=== PATIENT | female | born 1995 | race Asian ===

== ENCOUNTER 2016-12-16 19:19 | Emergency (ER) | payer OTHER ==
[2016-12-16] MEDS ORDERED: SODIUM CHLORIDE 0.9% 3 ML VIAL.NEB INHALATION ONE (19:43)
[2016-12-16] MEDS ORDERED: IPRATROPIUM/ALBUTEROL 0.5/3 MG 3 ML AMPUL.NEB INHALATION ONE (19:43)
[2016-12-16] MEDS ORDERED: PIGGYBACK IV ONE (20:01)
[2016-12-16] MEDS ORDERED: METHYLPREDNISOLONE SOD 125 MG/2 ML VIAL ONE (20:01)
[2016-12-16] MEDS ORDERED: MAGNESIUM SULFATE IV ONE (20:01)
[2016-12-16 20:14] LABS: BASOPHIL# 0.1 X 10^3uL (0.0-0.1); BASOPHILS 1.3 % (0.0-2.0); EOSINOPHILS 0.8 % (0.0-6.0); HEMATOCRIT 44.8 % (36.0-48.0); HEMOGLOBIN 15.2 g/dL (12.0-16.0); LYMPHOCYTES 32.4 % (20.0-40.0); LYMPHOCYTES# 1.5 X 10^3uL (0.8-3.8); MEAN CELL VOLUME 90.9 fL (80.0-100.0); MEAN CORPUSCULAR HEMOGLOBIN 30.9 pg (29.0-35.0); MEAN PLATELET VOLUME 8.4 fL (7.4-10.4); MONOCYTES 6.8 % (2.0-10.0); MONOCYTES# 0.3 X 10^3uL (0.2-1.0); NEUTROPHILS 58.7 % (54.0-75.0); NEUTROPHILS# 2.6 X 10^3uL (2.6-6.7); PLATELET COUNT 286 X 10^3uL (130-440); RED BLOOD COUNT 4.93 X 10^6uL (4.20-6.10); RED CELL DISTRIBUTION WIDTH 12.4 % (11.5-14.5); WHITE BLOOD COUNT 4.5 X 10^3uL (3.9-10.7)
[2016-12-16 20:24] LABS: A/G RATIO 1.5; ALBUMIN 4.9 g/dL (3.5-5.0); ALKALINE PHOSPHATASE 71 U/L (38-126); ALT 37 U/L (9-52); AST 26 U/L (14-36); BILIRUBIN, TOTAL 0.7 mg/dL (0.2-1.3); BLOOD UREA NITROGEN 9 mg/dL (7-17); CALCIUM 9.9 mg/dL (8.4-10.2); CHLORIDE 104 mmol/L (98-107); EST GLOMERULAR FILTRATION RATE > 60 mL/min; GLUCOSE 94 mg/dL (70-100); POTASSIUM 3.7 mmol/L (3.5-5.1); SODIUM 142 mmol/L (137-145); TOTAL PROTEIN 8.1 g/dL (6.3-8.2)
--- NOTE | 2016-12-16 20:51 | ER PHYSICIAN DOCUMENTATION ---
Physician Documentation [facility] Name:Laurie Major Age:20 yrs Sex:Female :1995 Arrival Date:12/16/2016 Time:19:19 Bed4 Private MD: William Rehman Disposition: 12/16 20:30 Critical Care: not applicable. be Disposition: 12/16/16 20:32 Discharged to Home/Self Care. Impression: Asthma with Acute Exacerbation. - Condition is Good. - Discharge Instructions: ASTHMA, Acute (Adult). - Prescriptions for Prednisone 20 mg Oral Tablet - take 2 tablet by ORAL route once daily for 5 days; 10 tablet. - Medical Reconciliation form form. - Follow up: Private Physician; When: As needed; Reason: Continuance of care. - Problem is an acute exacerbation. - Symptoms have improved. HPI: 20:00 This 20 yrs old Female presents to ER via Private Vehicle with be complaints of Respiratory Distress. 20:00 The patient has shortness of breath with light activity. Onset: The symptom(s)/episode be began/occurred gradually, today. Duration: The symptoms are continuous. The patient's shortness of breath is alleviated by inhaler. Associated signs and symptoms: Pertinent positives: non-productive cough. The patient has experienced similar episodes in the past, chronically, astma. Historical: - Allergies: No known drug Allergies; - Home Meds: 1. Singulair Oral 2. Albuterol Inhl - PMHx: ASTHMA; - PSHx: None; - Tetanus: unknown will f/u with PCP. - Ebola Screening: : Patient negative for fever greater than or equal to 101.5 degrees Fahrenheit, and additional compatible Ebola Virus Disease symptoms. Patient denies exposure to infectious person. Patient denies travel to an Ebola-affected area in the 21 days before illness onset. . - Immunization history: Unable to Obtain Flu Vaccine unknown. - Social history: Smoking status: Patient states was never smoker of tobacco. ROS: 20:01 Respiratory: Positive for cough, wheezing, Negative for sputum production. be 20:01 All other systems are negative. Exam: 20:01 Constitutional: This is a well developed, well nourished patient who is awake, alert, be and in no acute distress. 20:01 ENT: Nares patent. No nasal discharge, no septal abnormalities noted. Tympanic be membranes are normal and external auditory canals are clear. Oropharynx with no redness, swelling, or masses, exudates, or evidence of obstruction, uvula midline. Mucous membranes moist. 20:01 Cardiovascular: Rhythm: regular, Heart sounds: normal. 20:01 Respiratory: Respirations: normal, Breath sounds: wheezing, that is mild, decreased breath sounds, are scattered. Vital Signs: 19:22 BP 126 / 94 RA Sitting (auto/reg); Pulse 116 LA; Resp 12 S; Temp 98.7(O); Pulse Ox 93% em3 on R/A; Weight 58.97 kg (R); Height 5 ft. 5 in. (165.10 cm) (R); Pain 0/10; 20:41 BP 113 / 76; Pulse 93; Resp 14; Pulse Ox 95% on R/A; Pain 0/10; tg 19:22 Body Mass Index 21.63 (58.97 kg, 165.10 cm) em3 MDM: 19:29 Patient medically screened. be 20:02 Differential diagnosis: asthma, Bronchitis pneumonia, Pneumothorax. Antibiotic be administration: Not indicated. Data reviewed: vital signs, lab test result(s), radiologic studies. Data interpreted: Pulse oximetry: is 93 %. 20:30 Data reviewed: and as a result, I will discharge patient, administer steroids, be Solumedrol, magnesium and DuoNebs; home with prednisone and increased albuterol MDI. 12/16 20:18 Order name: CBC AUTO DIF, MDIF/RMOR IF IND; Complete Time: 21:21 EDMS 12/16 20:29 Interpretation: Normal. be 12/16 20:19 Order name: LACTATE; Complete Time: 20:29 EDMS 07 20:29 Interpretation: Normal. be 12/16 20:31 Order name: COMPREHENSIVE METABOLIC PANEL; Complete Time: 21:21 EDMS 12/16 21:21 Interpretation: Normal. be 12/17 08:47 Order name: CHEST; SINGLE [place]IEW [id number] EDMS Dispensed Medications: 19:44 Drug: DuoNeb (Albuterol 2.5 mg, Atrovent 0.5 mg); 3 ml; Route: Nebulizer; tg 20:02 Follow up: Response: No adverse reaction tg 19:44 Drug: DuoNeb (Albuterol 2.5 mg, Atrovent 0.5 mg); 3 ml; Route: Nebulizer; tg 20:02 Follow up: Response: No adverse reaction tg 20:01 Drug: NS 0.9% 1000 ml; Route: IV; Rate: 150 ml/hr; Site: right antecubital; Delivery: tg [place] Tubing; 20:42 Follow up: IV Status: Completed infusion; IV Intake: 150ml tg 20:01 Drug: Solu-MEDROL 125 mg; Route: IVP; Site: right antecubital; tg 20:43 Follow up: Response: No adverse reaction tg 20:01 Drug: NS 0.9% 200 ml, Magnesium Sulfate 2 grams; Route: IVPB; Infused Over: 1 hrs; tg Site: right antecubital; Delivery: Pump; :42 Follow up: IV Status: Completed infusion; IV Intake: 200ml tg Signatures: Zeyad Farah RN RN tg William Calhoun MD MD be
--- NOTE | 2016-12-16 20:51 | ER NURSING DOCUMENTATION ---
Nurse's Notes [facility] Name:Laurie Major Age:20 yrs Sex:Female :1995 Arrival Date:12/16/2016 Time:19:19 Bed4 Private MD: Diagnosis:Asthma with Acute Exacerbation Presentation: 12/16 19:21 Presenting complaint: Patient states: Asthma flare up for the past few days, cough for tg the past few weeks. Chest tightness. Used albutrol inhaler earlier, which helped. Transition of care: Camp. 19:21 Acuity: LETI 2 tg 19:21 Method Of Arrival: Private Vehicle tg Triage Assessment: 19:25 General: Appears uncomfortable, Behavior is cooperative. Pain: Complains of pain in tg chest Quality of pain is described as tightness. Neuro: Level of Consciousness is awake, alert. Cardiovascular: Capillary refill < 3 seconds. Respiratory: Airway is patent Respiratory effort is even, unlabored, Reports cough that is Onset: The symptoms/episode began/occurred 19:26 Respiratory: Breath sounds are clear Breath sounds are diminished. tg Historical: - Allergies: No known drug Allergies; - Home Meds: 1. Singulair Oral 2. Albuterol Inhl - PMHx: ASTHMA; - PSHx: None; - Tetanus: unknown will f/u with PCP. - Ebola Screening: : Patient negative for fever greater than or equal to 101.5 degrees Fahrenheit, and additional compatible Ebola Virus Disease symptoms. Patient denies exposure to infectious person. Patient denies travel to an Ebola-affected area in the 21 days before illness onset. . - Immunization history: Unable to Obtain Flu Vaccine unknown. - Social history: Smoking status: Patient states was never smoker of tobacco. Screenin:03 Infectious Disease Risk Unable to Obtain. Abuse screen: Denies threats or abuse. Denies tg injuries from another. Nutritional screening: No deficits noted. Vital Signs: 19:22 BP 126 / 94 RA Sitting (auto/reg); Pulse 116 LA; Resp 12 S; Temp 98.7(O); Pulse Ox 93% em3 on R/A; Weight 58.97 kg (R); Height 5 ft. 5 in. (165.10 cm) (R); Pain 0/10; 20:41 BP 113 / 76; Pulse 93; Resp 14; Pulse Ox 95% on R/A; Pain 0/10; tg 19:22 Body Mass Index 21.63 (58.97 kg, 165.10 cm) em3 ED Course: 19:21 Patient arrived in ED. dp 19:21 Zeyad Farah, PAULINE is Primary Nurse. tg 19:22 Triage completed. tg 19:23 Valuables Remains with patient Patient has correct armband on for positive em3 identification. Bed in low position. Call light in reach. Side rails up X 1. 19:29 William Calhoun MD is Attending Physician. be 19:44 Inserted peripheral IV: 20 gauge in right antecubital area and blood collected. tg 19:55 Port Xray Completed. dnn Administered Medications: 19:44 Drug: DuoNeb (Albuterol 2.5 mg, Atrovent 0.5 mg); 3 ml; Route: Nebulizer; tg 20:02 Follow up: Response: No adverse reaction tg 19:44 Drug: DuoNeb (Albuterol 2.5 mg, Atrovent 0.5 mg); 3 ml; Route: Nebulizer; tg 20:02 Follow up: Response: No adverse reaction tg 20:01 Drug: NS 0.9% 1000 ml; Route: IV; Rate: 150 ml/hr; Site: right antecubital; Delivery: tg [place] Tubing; 20:42 Follow up: IV Status: Completed infusion; IV Intake: 150ml tg 20:01 Drug: Solu-MEDROL 125 mg; Route: IVP; Site: right antecubital; tg 20:43 Follow up: Response: No adverse reaction tg 20:01 Drug: NS 0.9% 200 ml, Magnesium Sulfate 2 grams; Route: IVPB; Infused Over: 1 hrs; tg Site: right antecubital; Delivery: Pump; 20:42 Follow up: IV Status: Completed infusion; IV Intake: 200ml tg Intake: 20:42 IV: 200ml; Total: 200ml. tg 20:42 IV: 150ml; Total: 350ml. tg Outcome: 20:32 Discharge ordered by . be 20:49 Discharged to home ambulatory, with friend. tg 20:49 Condition: stable 20:49 Discharge Assessment: Patient awake, alert and oriented x 3. No cognitive and/or functional deficits noted. Patient verbalized understanding of disposition instructions. Cough has resolved. Pt reports feeling no symptoms. 20:49 Instructed on discharge instructions, follow up and referral plans. medication usage, Prescriptions given X 1. 20:49 IV D/Moustapha 20:50 Patient left the ED. tg Signatures: Zeyad Farah RN RN tg William Calhoun MD MD be Norman, David dnn Meiklejohn, Eric em3 Sarah James dp
--- NOTE | 2016-12-17 07:37 | RADIOLOGY REPORT ---
A single portable view of the chest demonstrates the heart, vessels and lungs to be unremarkable. No infiltrate, fluid or pneumothorax is seen. IMPRESSION: Unremarkable limited single view of the chest. MTDD
== END 2016-12-16 20:51 | disposition home or self-care (01) ==
LOC: ER 19:19
DX: J45.901 Unspecified asthma with (acute) exacerbation (principal); Z79.899 Other long term (current) drug therapy
CPT/HCPCS: 71010; 80053; 83605; 85025; 94640; 96365; 96375; 99284; J2930; J3475; J7620

== ENCOUNTER 2016-12-21 18:18 | Emergency (ER) | payer OTHER ==
[2016-12-21] MEDS ORDERED: predniSONE 10 MG TABLET PO ONE (19:26)
[2016-12-21] MEDS ORDERED: IPRATROPIUM/ALBUTEROL 0.5/3 MG 3 ML AMPUL.NEB INHALATION ONE (19:26)
--- NOTE | 2016-12-21 20:02 | ER PHYSICIAN DOCUMENTATION ---
Physician Documentation [facility] Name:Laurie Major Age:20 yrs Sex:Female :1995 Arrival Date:12/21/2016 Time:18:18 Bed4 Private MD:No PCP, Identified ED Cesar Loaiza Disposition: 12/21 23:46 Critical Care: not applicable. Chart complete. tl1 Disposition: 12/21/16 19:42 Discharged to Home/Self Care. Impression: Asthma with Acute Exacerbation. - Condition is Good. - Discharge Instructions: INHALER USE. - Prescriptions for Ventolin HFA 90 mcg/actuation Inhalation HFA aerosol inhaler - inhale 2 puff by INHALATION route every 4 hours; 1 Inhaler. budesonide 90 mcg/actuation Inhalation aerosol powdr breath activated - inhale 2 puff by INHALATION route 2 times per day; 1 Inhaler. Prednisone 20 mg Oral Tablet - take 2 tablet by ORAL route once daily for 5 days; 10 tablet. - Medical Reconciliation form form. - Follow up: Private Physician; When: 7 - 10 days; Reason: Recheck today's complaints, Continuance of care. - Problem is an acute exacerbation. - Symptoms have improved. HPI: 18:52 This 20 yrs old Female presents to ER via Private Vehicle with cd complaints of Shortness Of Breath. 18:52 She has a h/o mild asthma which she says is worse when she is in [place]. No h/o tl1 hospitalization for this. 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 She was seen here 5 days ago for an asthma exacerbation and responded well to albuterol and a 5 day course of steroids. Today, her wheezing is worse and she has used her albuterol rescue inhaler 3 times with partial improvement. She has a DIRECTOR COLLEGE cough, but no F/C/S/CP/hemoptysis. No LE pain or swelling. Her asthma has always been mild, and she does not have a good sense of her usual triggers.. Historical: - Allergies: No known drug Allergies; - Home Meds: 1. Singulair Oral 2. Albuterol Inhl - PMHx: ASTHMA; Asthma with Acute Exacerbation (December 16, 2016); - PSHx: NONE; - Tetanus: < 10 years. - Ebola Screening: : Patient denies travel to an Ebola-affected area in the 21 days before illness onset. No symptoms or risks identified at this time. . - Immunization history: Pneumococcal vaccine status is unknown, Flu Vaccine Flu Vaccine < 1 year. - Social history: Smoking status: Patient states was never smoker of tobacco. ROS: 18:52 Respiratory: Positive for cough, shortness of breath, wheezing, Negative for tl1 hemoptysis, orthopnea, pleurisy. 18:52 All other systems are negative. Exam: 18:52 Constitutional: This is a well developed, well nourished patient who is awake, alert, tl1 and in no acute distress. Head/Face: Normocephalic, atraumatic. 18:52 Eyes: Pupils equal round and reactive to light, extra-ocular motions intact. Lids and tl1 lashes normal. Conjunctiva and sclera are non-icteric and not injected. Cornea within normal limits. Periorbital areas with no swelling, redness, or edema. 18:52 Cardiovascular: Rate: normal, Rhythm: regular, Heart sounds: normal. 18:52 Respiratory: the patient does not display signs of respiratory distress, Respirations: normal, Breath sounds: are normal, no decreased breath sounds, no rales, rhonchi, no stridor, no wheezing. 18:52 Musculoskeletal/extremity: Exam is negative for acute changes. 18:52 Skin: Exam negative for acute changes. 18:52 Neuro: Exam negative for acute changes. Vital Signs: 18:34 BP 140 / 94; Pulse 104; Resp 18; Temp 98.5; Pulse Ox 94% on R/A; Weight 58.97 kg; lc Height 5 ft. 5 in. (165.10 cm); Pain 0/10; 19:57 Pulse 95; Resp 16; Pulse Ox 95% on R/A; Pain 0/10; lc 18:34 Body Mass Index 21.63 (58.97 kg, 165.10 cm) MDM: 18:52 Patient medically screened. cd 20:00 Differential diagnosis: asthma, Bronchitis pneumonia, Pulmonary Embolism reactive tl1 airway disease. Antibiotic administration: Not indicated. The patient's pulmonary embolism risk score was calculated as follows: No Risks (0 Pts). Data reviewed: vital signs, nurses notes, old medical records, and as a result, I will discharge patient. Data interpreted: gambling monitor: Pulse oximetry: on room air is 95 %. Counseling: I had a detailed discussion with the patient and/or guardian regarding: the historical points, exam findings, and any diagnostic results supporting the discharge/admit diagnosis, the need for outpatient follow up, for a recheck, a family practitioner, to return to the emergency department if symptoms worsen or persist or if there are any questions or concerns that arise at home. Medication response: The patient's symptoms have improved, Response to treatment: PEF increased from 300 to350 (predicted best of 575) after a duoneb treatment.. Special discussion: I told her that there is a chance that she may not have asthma, and there is a long list of conditions other than asthma that can cause wheezing. I would expect that a second course of steroids should bring this exacerbation to a halt, unless of course, she has an ongoing allergy or other asthma precipitant. She may need to be seen locally prior to heading back home to [place].. Dispensed Medications: 19:16 Drug: DuoNeb (Albuterol 2.5 mg, Atrovent 0.5 mg); 3 ml; Route: Nebulizer; Infused Over: lc 15 mins; 19:34 Follow up: Response: No adverse reaction lc 19:16 Drug: predniSONE 40 mg; Route: PO; lc 19:35 Follow up: Response: No adverse reaction lc Signatures: Dulce Maria York RN RN lc Pavlish, Lena, RN RN lp Daley, Chris, MD MD cd Leigh, Tom, MD MD tl1
--- NOTE | 2016-12-21 20:02 | ER NURSING DOCUMENTATION ---
Nurse's Notes [facility] Name:Laurie Major Age:20 yrs Sex:Female :1995 Arrival Date:12/21/2016 Time:18:18 Bed4 Private MD:No PCP, Identified Diagnosis:Asthma with Acute Exacerbation Presentation: 12/21 18:20 Acuity: LETI 3 lp 18:30 Presenting complaint: Patient states: SEEN IN ED LAST WEEK FOR ASTHMA EXACERBATION, lc GIVEN STEROID RX. FINISHED AND SYMPTOMS RETURNED. TRIED ALBUTEROL INHALER WITHOUT RELIEF. C/O PRODUCTIVE COUGH, CLEAR MUCOUS, NO FEVER OR ST OR OTHER SYMPTOMS. Transition of care: Camp. Notified ED Physician of patient's arrival and CC. 18:30 Method Of Arrival: Private Vehicle Triage Assessment: 18:32 General: Appears in no apparent distress, Behavior is appropriate for age, cooperative. lc Pain: Denies pain. Neuro: Level of Consciousness is awake, alert, Oriented to person, place, time, event. Respiratory: Airway is patent Respiratory effort is even, unlabored, Respiratory pattern is regular, symmetrical, Sputum is clear Breath sounds are clear bilaterally. Breath sounds are coarse in left posterior upper lobe and right posterior upper lobe Reports cough that is productive, since LAST FEW DAYS Onset: The symptoms/episode began/occurred gradually, the patient has moderate shortness of breath. Derm: Skin is pink, warm & dry. Historical: - Allergies: No known drug Allergies; - Home Meds: 1. Singulair Oral 2. Albuterol Inhl - PMHx: ASTHMA; Asthma with Acute Exacerbation (December 16, 2016); - PSHx: NONE; - Tetanus: < 10 years. - Ebola Screening: : Patient denies travel to an Ebola-affected area in the 21 days before illness onset. No symptoms or risks identified at this time. . - Immunization history: Pneumococcal vaccine status is unknown, Flu Vaccine Flu Vaccine < 1 year. - Social history: Smoking status: Patient states was never smoker of tobacco. Screenin:35 Infectious Disease Risk None. Abuse screen: Denies threats or abuse. Denies injuries lc from another. Nutritional screening: No deficits noted. Assessment: 18:35 See Triage Assessment done by same RN. 19:58 Cardiovascular: Rhythm is regular. Vital Signs: 18:34 BP 140 / 94; Pulse 104; Resp 18; Temp 98.5; Pulse Ox 94% on R/A; Weight 58.97 kg; lc Height 5 ft. 5 in. (165.10 cm); Pain 0/10; 19:57 Pulse 95; Resp 16; Pulse Ox 95% on R/A; Pain 0/10; lc 18:34 Body Mass Index 21.63 (58.97 kg, 165.10 cm) Vitals: 19:17 Peak flow readin liters/min. 19:47 Peak flow readin liters/min. ED Course: 18:19 Patient arrived in ED. ds 18:19 No PCP, Identified is Private Physician. ds 18:20 Triage completed. lp 18:23 Dulce Maria York, RN is Primary Nurse. 18:36 Valuables Remains with patient Patient has correct armband on for positive lc identification. Placed in gown. Bed in low position. Call light in reach. Adult w/ patient. Head of bed elevated. 18:52 Jeremiah Lopez MD is Attending Physician. cd 19:17 Diet: Patient given snack. Patient given juice. 19:44 Attending Physician role handed off by Jeremiah Lopez MD em2 19:44 Cesar Loaiza MD is Attending Physician. em2 Administered Medications: 19:16 Drug: DuoNeb (Albuterol 2.5 mg, Atrovent 0.5 mg); 3 ml; Route: Nebulizer; Infused Over: 15 mins; 19:34 Follow up: Response: No adverse reaction 19:16 Drug: predniSONE 40 mg; Route: PO; 19:35 Follow up: Response: No adverse reaction Outcome: 19:42 Discharge ordered by . cd 19:57 Discharged to [facility] 19:57 Condition: stable 19:57 Discharge Assessment: Patient awake, alert and oriented x 3. No cognitive and/or functional deficits noted. Patient verbalized understanding of disposition instructions. 19:57 Discharge instructions given to patient, friend, Instructed on discharge instructions, follow up and referral plans. medication usage, INHALER USAGE Demonstrated understanding of instructions, medications, Prescriptions given X 3. 20:01 Patient left the ED. 12/22 10:16 Discharge F/U Call: Unable to reach: left message with person person taking message: Mother in [place] Signatures: Dulce Maria York, PAULINE RN Rufina Tidwell RN RN lp Srot, Caroline, Reg Reg ds Jeremiah Lopez MD MD cd Blanche-regLoretta-reg em2 Cesar Loaiza MD MD tl1
== END 2016-12-21 20:02 | disposition home or self-care (01) ==
LOC: ER 18:18
DX: J45.901 Unspecified asthma with (acute) exacerbation (principal)
CPT/HCPCS: 94640; 99284; J7512; J7620

== ENCOUNTER 2016-12-28 21:34 | Emergency (ER) | payer OTHER ==
[2016-12-28] MEDS ORDERED: IPRATROPIUM/ALBUTEROL 0.5/3 MG 3 ML AMPUL.NEB INHALATION ONE (21:53)
[2016-12-28] MEDS ORDERED: predniSONE 10 MG TABLET PO ONE (22:14)
--- NOTE | 2016-12-28 23:04 | ER NURSING DOCUMENTATION ---
Nurse's Notes [facility] Name:Laurie Major Age:21 yrs Sex:Female :1995 Arrival Date:12/28/2016 Time:21:34 Bed3 Private MD:No PCP, Identified Diagnosis:Wheezing Presentation: 12/28 21:38 Acuity: LETI 3 21:40 Presenting complaint: Patient states: SEEN RECENTLY IN ED FOR ASTHMA EXACERBATION. TODAY C/O SIMILAR SYMPTOMS OF SOB AND COUGH, USED INHALER X 5 WITHOUT RELIEF. IS A SUMMER COUNSELOR IN , FROM [employer]. Transition of care: Camp. Notified ED Physician of patient's arrival and CC. 21:40 Method Of Arrival: Private Vehicle Triage Assessment: 21:43 General: Appears distressed, well groomed, Behavior is anxious, cooperative. Neuro: lc Level of Consciousness is awake, alert, Oriented to person, place, time, event. Respiratory: Airway is patent Respiratory effort is even, labored, Respiratory pattern is regular, symmetrical, Breath sounds are clear bilaterally. Reports air hunger labored breathing Onset: The symptoms/episode began/occurred gradually, the patient has moderate shortness of breath. Derm: Skin is pink, warm & dry. 21:45 Pain:. Pain: Complains of pain in ACROSS CHEST WITH COUGHING Pain At worst was 6 out of lc 10 on a pain scale. Quality of pain is described as aching. Historical: - Allergies: No known drug Allergies; - Home Meds: 1. Singulair Oral 2. Albuterol Inhl - PMHx: ASTHMA; Asthma with Acute Exacerbation (December 16, 2016); Asthma with Acute Exacerbation (December 21, 2016); - PSHx: NONE; - Tetanus: < 10 years. - Ebola Screening: : Patient denies travel to an Ebola-affected area in the 21 days before illness onset. No symptoms or risks identified at this time. . - Immunization history: Pneumococcal vaccine status is unknown, Flu Vaccine >1 year. - Social history: Smoking status: Patient states was never smoker of tobacco. Screenin:47 Infectious Disease Risk None. Abuse screen: Denies threats or abuse. Denies injuries lc from another. Nutritional screening: No deficits noted. Assessment: 21:47 See Triage Assessment done by same RN. Cardiovascular: Rhythm is regular. 23:01 Reassessment: Patient states feeling better. Patient states symptoms have improved. Patient appears in no apparent distress at this time. FEELS READY DC . Vital Signs: 21:36 BP 117 / 88; Pulse 108; Resp 18; Temp 98.4; Pulse Ox 98% on R/A; Weight 58.97 kg; em1 Height 5 ft. 5 in. (165.10 cm); Pain 6/10; 22:15 Pulse 98; Resp 18; Pulse Ox 95% ; lc 23:01 BP 128 / 85; Pulse 96; Resp 16; Pulse Ox 97% on R/A; Pain 0/10; lc 21:36 Body Mass Index 21.63 (58.97 kg, 165.10 cm) em1 Vitals: 21:52 Peak flow readin liters/min. lc 22:39 Peak flow readin liters/min. lc 22:53 Peak flow readin liters/min. ED Course: 21:36 Patient arrived in ED. em2 21:36 No PCP, Identified is Private Physician. em2 21:38 Dulce Maria York RN is Primary Nurse. 21:38 Triage completed. 21:46 Cesar Loaiza MD is Attending Physician. tl1 21:47 Valuables Remains with patient Patient has correct armband on for positive lc identification. Bed in low position. Call light in reach. Child being held by parent. Pulse Ox - RN Monitoring Only. Head of bed elevated. 22:20 Diet: Patient given snack. Patient given juice. Administered Medications: 21:45 Drug: DuoNeb (Albuterol 2.5 mg, Atrovent 0.5 mg); 3 ml; Route: Nebulizer; Infused Over: 15 mins; 22:43 Follow up: Response: Wheezing diminished 22:06 Drug: predniSONE 40 mg; Route: PO; 22:44 Follow up: Response: No adverse reaction Outcome: 22:53 Discharge ordered by . tl1 23:02 Discharged to [facility] 23:02 Condition: stable 23:02 Discharge Assessment: Patient awake, alert and oriented x 3. No cognitive and/or functional deficits noted. Patient verbalized understanding of disposition instructions. 23:02 Discharge instructions given to patient, friend, Instructed on discharge instructions, follow up and referral plans. medication usage, Demonstrated understanding of instructions, medications, Prescriptions given X 1. 23:03 Patient left the ED. Signatures: Dulce Maria York RN RN lc [facility], [employer] em1 Blanche-reg, Loretta-[facility] em2 Cesar Loaiza MD MD tl1
--- NOTE | 2016-12-28 23:04 | ER PHYSICIAN DOCUMENTATION ---
Physician Documentation [facility] Name:Laurie Major Age:21 yrs Sex:Female :1995 Arrival Date:12/28/2016 Time:21:34 Bed3 Private MD:No PCP, Identified ED Cesar Loaiza Disposition: 12/29 03:20 Chart complete. tl1 Disposition: 12/28/16 22:53 Discharged to Home/Self Care. Impression: Wheezing. - Condition is Good. - Discharge Instructions: WHEEZING Adult - BRONCHOSPASM (Adult). - Prescriptions for Prednisone 20 mg Oral - take 2 tablet by ORAL route once daily for 5 days; 20 tablet. - Medical Reconciliation form form. - Follow up: Private Physician; When: 7 - 10 days; Reason: Recheck today's complaints, Continuance of care. - Problem is new. - Symptoms have improved. - Notes: KEEP TAKING THE PREDNISONE UNTIL YOU GET BACK TO [place]. KEEP TAKING THE INHALED STEROID. RETURN FOR ANY PERSISTENT WORSENING NOT TREATED BY THE ALBUTEROL. HPI: 12/28 21:36 This 21 yrs old Female presents to ER via Private Vehicle with tl1 complaints of Breathing Difficulty. 21:36 The patient has shortness of breath at rest. Onset: The symptom(s)/episode tl1 began/occurred gradually, 3 day(s) ago. Duration: The symptoms are continuous. The patient's shortness of breath is alleviated by inhaler. Associated signs and symptoms: Pertinent positives: chest pain, non-productive cough, Pertinent negatives: diaphoresis, fever, hemoptysis, nausea, vomiting. Severity of symptoms: At their worst the symptoms were moderate in the emergency department the symptoms have improved. The patient has experienced similar episodes in the past, several times. The patient has been recently seen at the [facility], last week, a couple of weeks ago. Historical: - Allergies: No known drug Allergies; - Home Meds: 1. Singulair Oral 2. Albuterol Inhl - PMHx: ASTHMA; Asthma with Acute Exacerbation (December 16, 2016); Asthma with Acute Exacerbation (December 21, 2016); - PSHx: NONE; - Tetanus: < 10 years. - Ebola Screening: : Patient denies travel to an Ebola-affected area in the 21 days before illness onset. No symptoms or risks identified at this time. . - Immunization history: Pneumococcal vaccine status is unknown, Flu Vaccine >1 year. - Social history: Smoking status: Patient states was never smoker of tobacco. ROS: 21:45 Respiratory: Positive for cough, shortness of breath, wheezing, Negative for tl1 hemoptysis, orthopnea, pleurisy. 21:45 All other systems are negative. Exam: 21:45 Constitutional: This is a well developed, well nourished patient who is awake, alert, tl1 and in no acute distress. Head/Face: Normocephalic, atraumatic. ENT: Nares patent. No nasal discharge, no septal abnormalities noted. Tympanic membranes are normal and external auditory canals are clear. Oropharynx with no redness, swelling, or masses, exudates, or evidence of obstruction, uvula midline. Mucous membranes moist. 21:45 Chest/axilla: Normal chest wall appearance and motion. Nontender with no deformity. tl1 No lesions are appreciated. 21:45 Cardiovascular: Rate: normal, Rhythm: regular, Heart sounds: normal, Edema: is not appreciated, JVD: is not appreciated. 21:45 Respiratory: the patient does not display signs of respiratory distress, Respirations: normal, Breath sounds: are normal, no rales, rhonchi, no stridor, no wheezing, Initial PEF = 350. 21:45 Abdomen/GI: Palpation: abdomen is soft and non-tender. 21:45 Skin: Exam negative for acute changes. 21:45 Neuro: Exam negative for acute changes. Vital Signs: 21:36 BP 117 / 88; Pulse 108; Resp 18; Temp 98.4; Pulse Ox 98% on R/A; Weight 58.97 kg; em1 Height 5 ft. 5 in. (165.10 cm); Pain 6/10; 22:15 Pulse 98; Resp 18; Pulse Ox 95% ; lc 23:01 BP 128 / 85; Pulse 96; Resp 16; Pulse Ox 97% on R/A; Pain 0/10; lc 21:36 Body Mass Index 21.63 (58.97 kg, 165.10 cm) em1 MDM: 21:46 Patient medically screened. tl1 22:20 Differential diagnosis: asthma, Bronchitis reactive airway disease. Antibiotic tl1 administration: Not indicated. The patient's pulmonary embolism risk score was calculated as follows: No Risks (0 Pts). Data reviewed: vital signs, nurses notes, old medical records. Data reviewed: and as a result, I will discharge patient. Data interpreted: surveillance monitor: Pulse oximetry:. Counseling: I had a detailed discussion with the patient and/or guardian regarding: the historical points, exam findings, and any diagnostic results supporting the discharge/admit diagnosis, the need for outpatient follow up, for a referral to a specialist, a energy specialist, to return to the emergency department if symptoms worsen or persist or if there are any questions or concerns that arise at home. Response to treatment: the patient's symptoms have mildly improved after treatment, PEF improved to 420 after a duoneb., and as a result, I will discharge patient. Dispensed Medications: 21:45 Drug: DuoNeb (Albuterol 2.5 mg, Atrovent 0.5 mg); 3 ml; Route: Nebulizer; Infused Over: lc 15 mins; 22:43 Follow up: Response: Wheezing diminished lc 22:06 Drug: predniSONE 40 mg; Route: PO; lc 22:44 Follow up: Response: No adverse reaction lc Signatures: Dulce Maria York, RN RN Cesar Lu MD MD tl1
== END 2016-12-28 23:04 | disposition home or self-care (01) ==
LOC: ER 21:34
DX: J45.909 Unspecified asthma, uncomplicated (principal); R06.2 Wheezing; R05 Cough; R07.9 Chest pain, unspecified; Z79.899 Other long term (current) drug therapy
CPT/HCPCS: 94640; 99284; J7512; J7620